=== PATIENT | female | born 1985 | race Caucasian/White ===

== ENCOUNTER 2018-04-01 12:19 | Emergency (ER) | payer MEDICAID ==
[~2018-04-01] VITALS: Ht 175.3 cm; Wt 105.2 kg
[2018-04-01 13:05] VITALS: Ht 175.3 cm; Wt 105.2 kg
[2018-04-01 14:04] LABS: BASOPHILS 0.2 % (0-2); EOSINOPHILS 0.3 % (0-7); HEMATOCRIT 43.9 % (36.0-48.0); HEMOGLOBIN 14.9 g/dL (12-16); IMMATURE GRANULOCYTES 0.5 % (0-5); LYMPHOCYTES 8.6 % (15-50); MCH 29.4 pg (26.0-34.0); MCHC 33.9 g/dL (31.0-37.0); MCV 86.6 fL (80.0-100.0); MEAN PLATELET VOLUME 10.6 fL (7.4-10.4); MONOCYTES 5.6 % (2-11); NEUTROPHILS 84.8 % (40-80); PLATELET COUNT 218 10x3/uL (130-400); RBC 5.07 10x6/uL (4.00-5.40); RDW 13.2 % (11.5-14.5)
[2018-04-01 14:07] LABS: APPEARANCE CLEAR (CLEAR); BILIRUBIN NEGATIVE (NEGATIVE); COLOR YELLOW (YELLOW); GLUCOSE NEGATIVE (NEGATIVE); KETONE NEGATIVE (NEGATIVE); NITRITE NEGATIVE (NEGATIVE); PROTEIN NEGATIVE (NEGATIVE); UROBILINOGEN NORMAL (NORMAL)
[2018-04-01 14:08] LABS: HCG SERUM NEGATIVE (NEGATIVE)
[2018-04-01 14:47] LABS: ALBUMIN 3.4 g/dL (3.4-5.0); ALKALINE PHOSPHATASE 81 U/L (46-116); ALT (SGPT) 23 U/L (10-68); AMYLASE - SERUM 31 U/L (25-115); BILIRUBIN - TOTAL 0.77 mg/dL (0.2-1.3); CALC OSMOLALITY 268 mosm/kg (275-300); CALCIUM 8.6 mg/dL (8.5-10.1); CARBON DIOXIDE 23.2 mmol/L (21.0-32.0); CHLORIDE - SERUM 100 mmol/L (98-107); CREATININE - SERUM 0.6 mg/dL (0.6-1.3); GLUCOSE 101 mg/dL (74-106); LIPASE 98 U/L (73-393); POTASSIUM - SERUM 4.4 mmol/L (3.5-5.1); PROTEIN - SERUM 7.5 g/dL (6.4-8.2); SODIUM 135 mmol/L (136-145); UREA NITROGEN 9 mg/dL (7-18); eGFR NON AFRICAN AMERICAN > 90 mL/min (90-120)
[2018-04-01] MEDS ORDERED: ZOFRAN8 MG PO (16:47)
[2018-04-01] MEDS ORDERED: TORADOL10 MG PO (16:47)
[2018-04-01 17:55] VITALS: BP 126/68
== END 2018-04-01 17:56 | disposition home or self-care (01) ==
LOC: D.ER 12:19
PROVIDERS: Family Medicine
DX: R10.12 Left upper quadrant pain (principal); R11.2 Nausea with vomiting, unspecified

== ENCOUNTER 2018-10-26 23:35 | Emergency (ER) | payer MEDICAID ==
[~2018-10-26] VITALS: Ht 175.3 cm; Wt 104.5 kg
[~2018-10-26 23:35] MED LIST: TORADOL10 MG PO; ZOFRAN8 MG PO
[2018-10-26 23:38] VITALS: Ht 175.3 cm; Wt 104.5 kg
[2018-10-27] MEDS ORDERED: TALWIN NX1 TAB PO (00:06)
[2018-10-27] MEDS ORDERED: VOLTAREN75 MG PO (00:06)
[2018-10-27 00:38] VITALS: BP 142/77
== END 2018-10-27 00:39 | disposition home or self-care (01) ==
LOC: D.ER 23:35
DX: S99.912A Unspecified injury of left ankle, initial encounter (principal); X58.XXXA Exposure to other specified factors, initial encounter; Y93.89 Activity, other specified; Y92.89 Other specified places as the place of occurrence of the external cause; M25.572 Pain in left ankle and joints of left foot

== ENCOUNTER 2020-10-02 20:25 | Emergency (ER) | payer MEDICAID ==
[~2020-10-02] VITALS: Ht 175.3 cm; Wt 113.6 kg
[~2020-10-02 20:25] MED LIST changes: +TALWIN NX1 TAB PO; +VOLTAREN75 MG PO
[2020-10-02 20:41] VITALS: Ht 175.3 cm; Wt 113.6 kg
[2020-10-02 22:35] VITALS: BP 135/98
== END 2020-10-03 01:16 | disposition left against medical advice (07) ==
LOC: D.ER 20:25
DX: G43.909 Migraine, unspecified, not intractable, without status migrainosus (principal)